=== PATIENT | male | born 1955 | race Caucasian/White ===

== ENCOUNTER 2017-01-21 14:47 | Emergency (ER) | payer MEDICARE ==
--- NOTE | 2017-01-21 15:00 | ER Document Report ---
ED Medical Screen (RME) - General Stated Complaint: FOOT PAIN Mode of Arrival: Wheelchair Information source: Patient Notes: pt presents with c/o left foot pain for over two weeks. recent treatment for gout. reports foot was cold and numb this am. Foot is normal temp now, brisk cap refill. Denies trauma. I have greeted and performed a rapid initial assessment of this patient. A comprehensive ED assessment and evaluation of the patient, analysis of test results and completion of the medical decision making process will be conducted by additional ED providers. TRAVEL OUTSIDE OF THE [place] IN LAST 30 DAYS: No - Related Data Allergies/Adverse Reactions: No Known Allergies Allergy (Verified 09/05/15 11:48) Past Medical History - Past Medical History Cardiac Medical History: Reports: Hx Hypercholesterolemia, Hx Hypertension Endocrine Medical History: Reports: Hx Diabetes Mellitus Type 2 Past Surgical History: Reports: Hx Cardiac Catheterization - stents, triple by pass
--- NOTE | 2017-01-21 17:35 | ER Document Report ---
ED Extremity Problem, Lower - General Time seen by provider: 17:15 Mode of Arrival: Wheelchair Information source: Patient TRAVEL OUTSIDE OF THE [place] IN LAST 30 DAYS: No - HPI Patient complains to provider of: Swelling Location: Foot Associated symptoms: Other - See above <CANDELARIA ALLISON - Last Filed: 01/21/17 18:18> <GRICEL JACKSON - Last Filed: 01/21/17 22:20> - General Chief Complaint: Foot Pain Stated Complaint: foot swelling Notes: Patient is a 61 year old male who presents to the emergency department complaining of left foot swelling onset 2 weeks ago. Five years ago patient had his left Achilles tendon removed and had complications with infections of the surgery site. Patient states the pain is in the back to middle of his foot with the swelling. Patient reports the swelling has worsened the past 2 weeks and that he originally went to an urgent care where he was treated for a gout flare up with no improvement. Patient reports it is painful to walk and uses a cane. (CANDELARIA ALLISON) - Related Data Allergies/Adverse Reactions: No Known Allergies Allergy (Verified 01/21/17 14:58) Past Medical History - General Information source: Patient - Social History Smoking Status: Never Smoker Chew tobacco use (# tins/day): No Frequency of alcohol use: None Drug Abuse: None Family History: Reviewed & Not Pertinent, CAD - Past Medical History Cardiac Medical History: Reports: Hx Hypercholesterolemia, Hx Hypertension Endocrine Medical History: Reports: Hx Diabetes Mellitus Type 2 Past Surgical History: Reports: Hx Cardiac Catheterization - stents, triple by pass <CANDELARIA ALLISON - Last Filed: 01/21/17 18:18> Review of Systems - Review of Systems Constitutional: No symptoms reported EENT: No symptoms reported Cardiovascular: No symptoms reported Respiratory: No symptoms reported Gastrointestinal: No symptoms reported Genitourinary: No symptoms reported Male Genitourinary: No symptoms reported Musculoskeletal: See HPI, Other - left foot swelling and pain Skin: No symptoms reported Hematologic/Lymphatic: No symptoms reported Neurological/Psychological: No symptoms reported -: Yes All other systems reviewed and negative <CANDELARIA ALLISON - Last Filed: 01/21/17 18:18> Physical Exam - Vital signs Interpretation: Normal - General General appearance: Appears well, Alert - HEENT Head: Normocephalic, Atraumatic Eyes: Normal Pupils: PERRL - Respiratory Respiratory status: No respiratory distress Chest status: Nontender Breath sounds: Normal Chest palpation: Normal - Cardiovascular Rhythm: Regular Heart sounds: Normal auscultation Murmur: No - Abdominal Inspection: Normal Distension: No distension Bowel sounds: Normal Tenderness: Nontender Organomegaly: No organomegaly - Back Back: Normal, Nontender - Extremities General upper extremity: Normal inspection, Nontender, Normal color, Normal ROM , Normal temperature General lower extremity: Normal inspection, Normal color, Normal ROM, Normal temperature, Normal weight bearing. No: Genia's sign Foot: Tender - Plantar aspect especially along the medial arch, point tender over medial heel. No erythema. No edema. No warmth. Good dorsalis pedis and posterior tibialis bilaterally - Neurological Neuro grossly intact: Yes Cognition: Normal Orientation: AAOx4 Kevin Coma Scale Eye Opening: Spontaneous Beaver Coma Scale Verbal: Oriented Beaver Coma Scale Motor: Obeys Commands Beaver Coma Scale Total: 15 Speech: Normal Motor strength normal: LUE, RUE, LLE, RLE Sensory: Normal - Psychological Associated symptoms: Normal affect, Normal mood - Skin Skin Temperature: Warm Skin Moisture: Dry Skin Color: Normal <GRICEL JACKSON - Last Filed: 01/21/17 22:20> - Vital signs Vitals: Temp Pulse Resp BP Pulse Ox 97.9 F 78 16 132/64 H 96 01/21/17 14:54 01/21/17 14:54 01/21/17 14:54 01/21/17 14:54 01/21/17 14:54 Course <CANDELARIA ALLISON - Last Filed: 01/21/17 18:18> - Diagnostic Test Radiology reviewed: Reports reviewed <GRICEL JACKSON - Last Filed: 01/21/17 22:20> - Re-evaluation Re-evalutation: 01/21/17 Patient with symptoms and exam consistent with plantar fasciitis. Patient has no evidence for infection. Patient was recently treated for gout without much improvement. His stated that his foot has never been red or warm. Patient has had multiple surgeries and would likely change the ergonomics of his foot. He is instructed to follow-up with his orthopedic doctor and consider orthopedic footwear. Patient is to continue indomethacin at home as for already prescribed. Return if any worsening or concerning symptoms. Has a cane for ambulation. Able to ambulate. Stable for discharge. (GRICEL JACKSON) - Vital Signs Vital signs: Temp Pulse Resp BP Pulse Ox 98.4 F 78 16 127/82 H 92 01/21/17 18:30 01/21/17 18:30 01/21/17 14:54 01/21/17 18:30 01/21/17 18:30 Discharge <CANDELARIA ALLISON - Last Filed: 01/21/17 18:18> <GRICEL JACKSON - Last Filed: 01/21/17 22:20> - Discharge Clinical Impression: Foot pain, left Condition: Stable Disposition: HOME, SELF-CARE Instructions: Plantar Fasciitis or Heel Spur ([facility]) Additional Instructions: Please follow-up with your orthopedic doctor or diagnostics tech this coming week. Please return if you have any further concerns. Prescriptions: Oxycodone HCl/Acetaminophen [Percocet 5-325 mg Tablet] 1 - 2 tab PO Q8HP PRN # 15 tablet PRN Reason: Forms: Elevated Blood Pressure Referrals: ALLI ARGUELLO DPM [ACTIVE STAFF] - Follow up as needed Scribe Attestation: 01/21/17 22:20 I personally performed the services described in the documentation, reviewed and edited the documentation which was dictated to the scribe in my presence, and it accurately records my words and actions. (GRICEL JACKSON) Scribe Documentation - Scribe Written by Igore:: bethany Dong, 01/21/171817 acting as scribe for :: Juanjose <CANDELARIA ALLISON - Last Filed: 01/21/17 18:18>
[2017-01-21] MEDS ORDERED: HYDROCODONE/ACETAMINOPHEN 5-325 MG 6 TAB/DSPK PO PRN (17:36)
[2017-01-21 18:33] VITALS: BP 127/82
== END 2017-01-21 18:34 | disposition home or self-care (01) ==
LOC: ER 14:47
DX: M79.672 Pain in left foot (principal); M79.89 Other specified soft tissue disorders
CPT/HCPCS: 99283; 73630; A9270

== ENCOUNTER 2017-02-05 16:56 | Inpatient (IN) | payer MEDICARE ==
[2017-02-05] MEDS ORDERED: VANCOMYCIN HCL INJ 1000 MG VIAL IV ONE ×2 (17:30→19:01)
[2017-02-05] MEDS ORDERED: AMPICILLIN SOD/SULBACTAM 3 GM VIAL IV ONE (17:30)
--- NOTE | 2017-02-05 17:31 | ER Document Report ---
ED Medical Screen (RME) - General Chief Complaint: Foot Pain Stated Complaint: LEFT FOOT PAIN TRAVEL OUTSIDE OF THE [place] IN LAST 30 DAYS: No - HPI Notes: 02/05/17 17:31 Recent joint aspiration by Dr. Collins podiatry now aspiration site red tender draining pus sent in to the ER by Dr. Collins 02/05/17 17:31 - Related Data Allergies/Adverse Reactions: No Known Allergies Allergy (Verified 02/05/17 17:10) Past Medical History - Past Medical History Cardiac Medical History: Reports: Hx Hypercholesterolemia, Hx Hypertension Endocrine Medical History: Reports: Hx Diabetes Mellitus Type 2 Renal/ Medical History: Denies: Hx Peritoneal Dialysis Past Surgical History: Reports: Hx Cardiac Catheterization - stents, triple by pass Review of Systems - Review of Systems Musculoskeletal: Other - Surgical site infection Physical Exam - Vital signs Vitals: Temp Pulse Resp BP Pulse Ox 97.5 F 72 18 124/71 94 02/05/17 17:13 02/05/17 17:13 02/05/17 17:13 02/05/17 17:13 02/05/17 17:13 - General General appearance: Appears well In distress: None Course - Vital Signs Vital signs: Temp Pulse Resp BP Pulse Ox 97.5 F 72 18 124/71 94 02/05/17 17:13 02/05/17 17:13 02/05/17 17:13 02/05/17 17:13 02/05/17 17:13
[2017-02-05 18:10] LABS: ABSOLUTE LYMPHOCYTES (AUTO) 0.7 10^3/uL (0.5-4.7); ABSOLUTE MONOCYTES (AUTO) 0.3 10^3/uL (0.1-1.4); ABSOLUTE NEUT (AUTO) 5.2 10^3/uL (1.7-8.2); BASOPHILS % (AUTO) 0.2 % (0-2); EOSINOPHILS % (AUTO) 0.5 % (0-6); HEMATOCRIT 37.5 % (37.9-51.0); HEMOGLOBIN 12.4 g/dL (13.5-17.0); HGB HCT DIFFERENCE -0.3; LYMPHOCYTES % (AUTO) 11.6 % (13-45); MEAN CORPUSCULAR HEMOGLOBIN 28.9 pg (27.0-33.4); MEAN CORPUSCULAR HGB CONC 33.1 g/dL (32.0-36.0); MEAN CORPUSCULAR VOLUME 87 fl (80-97); MONOCYTES % (AUTO) 5.3 % (3-13); RED CELL DISTRIBUTION WIDTH 14.6 % (11.5-14.0); SEGMENTED NEUTROPHILS % (AUTO) 82.4 % (42-78); WHITE BLOOD COUNT 6.3 10^3/uL (4.0-10.5)
[2017-02-05 18:33] LABS: ANION GAP 16 (5-19); BLOOD UREA NITROGEN 61 mg/dL (7-20); C-REACTIVE PROTEIN 59.4 mg/L (<10.0); CALCIUM 9.5 mg/dL (8.4-10.2); CARBON DIOXIDE 23 mmol/L (22-30); CHLORIDE 100 mmol/L (98-107); CREATININE RESULT 2.26 mg/dL (0.52-1.25); GLUCOSE 353 mg/dL (75-110); POTASSIUM 5.5 mmol/L (3.6-5.0); SODIUM 138.7 mmol/L (137-145); URIC ACID 5.4 mg/dL (3.5-8.5)
[2017-02-05 18:49] LABS: ERYTHROCYTE SEDIMENTATION RATE 86 mm/hr (0-20)
[2017-02-05] MEDS ORDERED: NORMAL SALINE 1000 ML 1,000 ML IV ONE (18:56)
[2017-02-05] MEDS ORDERED: MORPHINE SULFATE 10 MG/ML INJ IV PRN (19:03)
[2017-02-05] MEDS ORDERED: KETOROLAC TROMETHAMINE INJ/PF 30 MG/1 ML SDV IV ONE (19:03)
--- NOTE | 2017-02-05 19:03 | ER Document Report ---
ED General - General Chief Complaint: Foot Pain Stated Complaint: LEFT FOOT PAIN Notes: Patient is a 61-year-old male with past medical history of coronary artery disease, obesity, insulin-dependent diabetes, hypertension, hyperlipidemia who presents from a podiatry clinic with concerns of a left ankle cellulitis. Patient had the left ankle aspirated on the seventh of this month which apparently did return pus. That was sent for culture and has returned positive for staph infection. However, since aspiration was completed patient has had spreading redness over the dorsal surface of his left foot. Patient denies any fever or constitutional symptoms. He does note a dull, throbbing, constant pain to the affected area. Walking on the area worsens the pain. Nothing improves the pain and he has been trying Percocet. No history of similar symptoms in the past. TRAVEL OUTSIDE OF THE [place] IN LAST 30 DAYS: No - Related Data Allergies/Adverse Reactions: No Known Allergies Allergy (Verified 02/05/17 17:10) Past Medical History - General Information source: Patient - Social History Smoking Status: Never Smoker Frequency of alcohol use: None Drug Abuse: None Lives with: Spouse/Significant other Family History: Reviewed & Not Pertinent, CAD Patient has suicidal ideation: No Patient has homicidal ideation: No - Past Medical History Cardiac Medical History: Reports: Hx Hypercholesterolemia, Hx Hypertension Endocrine Medical History: Reports: Hx Diabetes Mellitus Type 2 Renal/ Medical History: Denies: Hx Peritoneal Dialysis Psychiatric Medical History: Reports: Hx Depression - PTSD, anxiety Past Surgical History: Reports: Hx Cardiac Catheterization - stents x2, triple bypass, Hx Cholecystectomy, Hx Orthopedic Surgery - left foot, right shoulder, left knee Review of Systems - Review of Systems Notes: Constitutional: Negative for fever. HENT: Negative for sore throat. Eyes: Negative for visual changes. Cardiovascular: Negative for chest pain. Respiratory: Negative for shortness of breath. Gastrointestinal: Negative for abdominal pain, vomiting or diarrhea. Genitourinary: Negative for dysuria. Musculoskeletal: Positive for left ankle pain. Skin: Negative for rash. Neurological: Negative for headaches, weakness or numbness. 10 point ROS negative except as marked above and in HPI. Physical Exam - Vital signs Vitals: Temp Pulse Resp BP Pulse Ox 97.5 F 72 18 124/71 94 02/05/17 17:13 02/05/17 17:13 02/05/17 17:13 02/05/17 17:13 02/05/17 17:13 Interpretation: Normal Notes: PHYSICAL EXAMINATION: GENERAL: Well-appearing, well-nourished and in no acute distress. HEAD: Atraumatic, normocephalic. EYES: Pupils equal round and reactive to light, extraocular movements intact, sclera anicteric, conjunctiva are normal. ENT: nares patent, oropharynx clear without exudates. Moist mucous membranes. NECK: Normal range of motion, supple without lymphadenopathy LUNGS: Breath sounds clear to auscultation bilaterally and equal. No wheezes rales or rhonchi. HEART: Regular rate and rhythm without murmurs ABDOMEN: Soft, nontender, normoactive bowel sounds. No guarding, no rebound. No masses appreciated. EXTREMITIES: Normal range of motion, no pitting or edema. No cyanosis. NEUROLOGICAL: No focal neurological deficits. Moves all extremities spontaneously and on command. PSYCH: Normal mood, normal affect. SKIN: Warm, Dry, normal turgor, there is erythema over the distal dorsum of the left foot. There is a small blood blister to the lateral malleolus of the left ankle. Course - Re-evaluation Re-evalutation: 02/05/17 19:02 Patient presents with a left foot cellulitis apparently from a left foot abscess that is status post drainage with culture results demonstrating MSSA. Primary concern at this point as the patient does appear somewhat clinically dehydrated and likewise has acute kidney injury on laboratories suggestive of prerenal azotemia with a BUN/creatinine ratio 26. Patient does not have any history of chronic kidney disease. His CRP and ESR are likewise elevated which is consistent with an acute cellulitis. X-ray without evidence of acute osteomyelitis. Given patient's acute kidney injury, hyperglycemia, and progression of his cellulitis rapidly over the last 12 hours despite administration of Bactrim, he will be admitted to the hospital - Vital Signs Vital signs: Temp Pulse Resp BP Pulse Ox 97.3 F 69 16 114/74 97 02/06/17 00:47 02/06/17 00:47 02/06/17 00:47 02/06/17 00:47 02/06/17 00:47 - Laboratory Result Diagrams: 02/05/17 17:40 02/05/17 22:00 Laboratory results interpreted by me: 02/05/17 02/05/17 02/05/17 17:40 17:40 20:51 RBC 4.30 L Hgb 12.4 L Hct 37.5 L RDW 14.6 H Seg Neutrophils % 82.4 H Lymphocytes % 11.6 L ESR 86 H Potassium 5.5 H BUN 61 H Creatinine 2.26 H Est GFR ( Amer) 36 L Est GFR (Non-Af Amer) 30 L Glucose 353 H Hemoglobin A1c % 7.5 H C-Reactive Protein 59.4 H - Diagnostic Test Radiology reviewed: Image reviewed, Reports reviewed Radiology results interpreted by me: 02/06/17 03:01 Left ankle x-ray: No acute fracture or osteomyelitis Discharge - Discharge Clinical Impression: Diabetic foot infection, Acute worsening of stage 3 chronic kidney disease Condition: Fair Disposition: ADMITTED INPATIENT Admitting Provider: [facility] Admitted: Telemetry
[2017-02-05] MEDS ORDERED: DEXTROSE 40% GEL 15 GM TUBE PO PRN ×2 (20:37)
[2017-02-05] MEDS ORDERED: INSULIN LISPRO 100 UNIT/ML 3 ML VIAL SUBCUT PRN (20:37)
[2017-02-05] MEDS ORDERED: GLUCAGON,HUMAN RECOMB 1 MG INJ IM PRN (20:37)
[2017-02-05] MEDS ORDERED: DEXTROSE 50%-WATER 25 GM/50 ML DISP.SYRIN IV PRN ×2 (20:37)
[2017-02-05] MEDS ORDERED: IPRATROPIUM/ALBUTEROL 0.5-2.5 MG/3 ML AMPUL NEB PRN (20:47)
[2017-02-05] MEDS ORDERED: ACETAMINOPHEN 325 MG TABLET PO PRN (20:47)
[2017-02-05] MEDS ORDERED: PIPERACILLIN/TAZOBACTAM 4.5 GM VIAL IV PRN (20:54)
[2017-02-05] MEDS ORDERED: PHARMACY COMMUNICATION ORDER MC SCH (21:00)
[2017-02-05] MEDS ORDERED: VANCOMYCIN HCL 0 MG in DEXTROSE 5%-WATER 250 ML IV NR (21:00)
[2017-02-05] MEDS ORDERED: PIPERACILLIN SODIUM/TAZOBACTAM 4.5 GM in NORMAL SALINE 100 ML IV SCH (21:00)
[2017-02-05 21:02] LABS: ADD ON TESTING BLD IN LAB ACKNOWLEDGE
[2017-02-05 21:15] LABS: ALANINE AMINOTRANSFERASE 28 U/L (21-72); ALBUMIN 4.1 g/dL (3.5-5.0); ALKALINE PHOSPHATASE 120 U/L (38-126); ASPARTATE AMINO TRANSFERASE 29 U/L (17-59); BILIRUBIN,DIRECT 0.4 mg/dL (0.0-0.4); BILIRUBIN,TOTAL 0.4 mg/dL (0.2-1.3); MAGNESIUM 2.1 mg/dL (1.6-2.3); TOTAL PROTEIN 6.9 g/dL (6.3-8.2)
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
[2017-02-05] MEDS: MORPHINE SULFATE 10 MG/ML INJ IV PRN (21:25)
[2017-02-05] MEDS: HEPARIN SOD (PORCINE) 5,000 UNIT/ML 1 ML SYRINGE SUBCUT SCH (22:03)
[2017-02-05] MEDS ORDERED: VANCOMYCIN HCL INJ 1000 MG VIAL ONE (22:18)
[2017-02-05 22:28] LABS: ANION GAP 15 (5-19); BLOOD UREA NITROGEN 61 mg/dL (7-20); CALCIUM 9.1 mg/dL (8.4-10.2); CARBON DIOXIDE 22 mmol/L (22-30); CHLORIDE 105 mmol/L (98-107); CREATININE RESULT 2.24 mg/dL (0.52-1.25); GLUCOSE 206 mg/dL (75-110); SODIUM 142.3 mmol/L (137-145)
[2017-02-05] MEDS: OXYCODONE HCL IR 5 MG TABLET PO PRN (23:03)
[2017-02-05] MEDS: NORMAL SALINE 1000 ML 1,000 ML IV PRN (23:05)
[2017-02-06] MEDS ORDERED: PIPERACILLIN/TAZOBACTAM 4.5 GM VIAL IV ONE ×2 (00:46→02:35)
[2017-02-06] MEDS: PIPERACILLIN SODIUM/TAZOBACTAM 4.5 GM in NORMAL SALINE 100 ML IV SCH ×5 (01:22→23:08)
[2017-02-06] MEDS ORDERED: D5W RTU IV ONE (02:34)
[2017-02-06] MEDS ORDERED: CEFEPIME IV ONE (02:34)
[2017-02-06] MEDS: MORPHINE SULFATE 10 MG/ML INJ IV PRN ×3 (06:05→21:42)
[2017-02-06 06:34] LABS: ABSOLUTE EOSINOPHILS # (AUTO) 0.1 10^3/uL (0.0-0.6); ABSOLUTE LYMPHOCYTES (AUTO) 1.4 10^3/uL (0.5-4.7); ABSOLUTE MONOCYTES (AUTO) 0.5 10^3/uL (0.1-1.4); ABSOLUTE NEUT (AUTO) 4.3 10^3/uL (1.7-8.2); BASOPHILS % (AUTO) 0.7 % (0-2); EOSINOPHILS % (AUTO) 1.4 % (0-6); HEMATOCRIT 34.1 % (37.9-51.0); HEMOGLOBIN 11.4 g/dL (13.5-17.0); HGB HCT DIFFERENCE 0.1; LYMPHOCYTES % (AUTO) 22.2 % (13-45); MEAN CORPUSCULAR HEMOGLOBIN 28.8 pg (27.0-33.4); MEAN CORPUSCULAR HGB CONC 33.4 g/dL (32.0-36.0); MEAN CORPUSCULAR VOLUME 86 fl (80-97); MONOCYTES % (AUTO) 7.8 % (3-13); RED BLOOD COUNT 3.96 10^6/uL (4.35-5.55); RED CELL DISTRIBUTION WIDTH 14.5 % (11.5-14.0); SEGMENTED NEUTROPHILS % (AUTO) 67.9 % (42-78); WHITE BLOOD COUNT 6.3 10^3/uL (4.0-10.5)
[2017-02-06 06:56] LABS: ANION GAP 14 (5-19); BLOOD UREA NITROGEN 58 mg/dL (7-20); CALCIUM 8.8 mg/dL (8.4-10.2); CARBON DIOXIDE 23 mmol/L (22-30); CHLORIDE 107 mmol/L (98-107); CREATININE RESULT 2.14 mg/dL (0.52-1.25); GLUCOSE 127 mg/dL (75-110); SODIUM 144.3 mmol/L (137-145)
[2017-02-06 06:59] LABS: POTASSIUM 4.7 mmol/L (3.6-5.0)
[2017-02-06] MEDS ORDERED: LIDOCAINE 0.5% INJ-PF (5 MG/ML) 50 ML SDV ONE (07:49)
[2017-02-06] MEDS: DOCUSATE SODIUM 100 MG CAPSULE PO SCH ×2 (09:37→17:38)
[2017-02-06] MEDS: HEPARIN SOD (PORCINE) 5,000 UNIT/ML 1 ML SYRINGE SUBCUT SCH ×2 (09:38→23:04)
[2017-02-06] MEDS: NORMAL SALINE 1000 ML 1,000 ML IV PRN (09:43)
--- NOTE | 2017-02-06 10:20 | Operative Report ---
Operative Report DATE OF SURGERY: 02/06/17 PREOPERATIVE DIAGNOSIS: Wound left ankle, lateral malleolar area POSTOPERATIVE DIAGNOSIS: Same OPERATION: Excisional debridement of skin and subcutaneous tissue wound irrigation SURGEON: DAMIEN KIRKPATRICK ANESTHESIA: Local TISSUE REMOVED OR ALTERED: Skin and subcutaneous tissue, fibrous tissue disposed of COMPLICATIONS: None ESTIMATED BLOOD LOSS: scant INTRAOPERATIVE FINDINGS: See below PROCEDURE: Left leg exposed. Surgical time out conducted. The lateral aspect of the left foot below the malleolus was prepped and draped with Betadine. A small 1 cm skin was anesthetized 1% lidocaine without epinephrine. The bulla was excised; the underlying subcutaneous tissue debrided of fibrous tissue. A hemostat used to explore any possible undrained tracts and there were none. Wound irrigated with saline, dressed with Xeroform, 4 x 4's. Impression; minimal, limited local loss infection left infra lateral malleolus region Plan: 1. Start dressing changes; orders written 2. Keep left leg elevated 3. Continue intravenous antibiotics; reexamine the left foot, suspect the metatarsal phalangeal region for change in cellulitic pattern
[2017-02-06] MEDS ORDERED: ALPRAZOLAM 0.25 MG TABLET PO PRN (11:38)
[2017-02-06] MEDS ORDERED: HYDROCODONE/ACETAMINOPHEN 5-325 MG TABLET PO PRN (11:38)
[2017-02-06] MEDS: OXYCODONE HCL IR 5 MG TABLET PO PRN ×2 (12:15→23:07)
[2017-02-06] MEDS: BUPROPION HCL 100 MG TABLET PO SCH ×2 (13:44→23:03)
[2017-02-06] MEDS: INSULIN LISPRO 100 UNIT/ML 3 ML VIAL SUBCUT SCH ×2 (13:45→17:40)
[2017-02-06] MEDS ORDERED: INSULIN LISPRO 40 UNIT SQ SCH (14:00)
[2017-02-06] MEDS ORDERED: ONDANSETRON HCL INJ/PF 4 MG/2 ML SDV IV PRN (14:31)
--- NOTE | 2017-02-06 16:20 | PDOC PROGRESS REPORT ---
Subjective Progress Note for:: 02/06/17 Subjective:: Patient is seen on rounds. He is out of bed in the recliner with left foot elevated. He is complaining of pain at the left outer malleoulus where abcess was debrided by Dr Choudhury earlier. He denies any other complaints at the present time. He states he has always had trouble with wounds in this area since achilles tendon was removed. He denies any fevers or chills. He states pain medication ordered is helping but he is finding he needs more before it's time. Rest of review of symptoms is negative. Physical Exam Vital Signs: Temp Pulse Resp BP Pulse Ox 97.7 F 73 16 103/56 L 97 02/06/17 12:35 02/06/17 14:00 02/06/17 11:03 02/06/17 12:35 02/06/17 12:35 Intake & Output 02/05/17 02/06/17 02/07/17 06:59 06:59 06:59 Intake Total 150 Balance 150 General appearance: PRESENT: no acute distress, morbidly obese, well-developed, well-nourished Head exam: PRESENT: atraumatic, normocephalic Eye exam: PRESENT: conjunctiva pink, EOMI, PERRLA. ABSENT: scleral icterus Ear exam: PRESENT: normal external ear exam Mouth exam: PRESENT: moist, tongue midline Neck exam: ABSENT: carotid bruit, JVD, lymphadenopathy, thyromegaly Respiratory exam: PRESENT: clear to auscultation taina. ABSENT: rales, rhonchi, wheezes Cardiovascular exam: PRESENT: RRR. ABSENT: diastolic murmur, rubs, systolic murmur Pulses: PRESENT: normal dorsalis pedis pul Vascular exam: PRESENT: normal capillary refill GI/Abdominal exam: PRESENT: normal bowel sounds, soft. ABSENT: distended, guarding, mass, organolmegaly, rebound, tenderness Rectal exam: PRESENT: deferred Extremities exam: PRESENT: tenderness - left outer malleolus ankle wound Musculoskeletal exam: PRESENT: ambulatory, full ROM, tenderness Neurological exam: PRESENT: alert, awake, oriented to person, oriented to place , oriented to time, oriented to situation, CN II-XII grossly intact. ABSENT: motor sensory deficit Psychiatric exam: PRESENT: appropriate affect, normal mood. ABSENT: homicidal ideation, suicidal ideation Skin exam: PRESENT: dry, intact, warm. ABSENT: cyanosis, rash Results Laboratory Results: 02/06/17 06:18 02/06/17 06:18 02/05/17 02/06/17 02/06/17 22:00 06:18 06:18 WBC 6.3 RBC 3.96 L Hgb 11.4 L Hct 34.1 L MCV 86 MCH 28.8 MCHC 33.4 RDW 14.5 H Plt Count 237 Seg Neutrophils % 67.9 Lymphocytes % 22.2 Monocytes % 7.8 Eosinophils % 1.4 Basophils % 0.7 Absolute Neutrophils 4.3 Absolute Lymphocytes 1.4 Absolute Monocytes 0.5 Absolute Eosinophils 0.1 Absolute Basophils 0.0 Sodium 142.3 144.3 Potassium 5.0 4.7 Chloride 105 107 Carbon Dioxide 22 23 Anion Gap 15 14 BUN 61 H 58 H Creatinine 2.24 H 2.14 H Est GFR ( Amer) 36 L 38 L Est GFR (Non-Af Amer) 30 L 32 L Glucose 206 H 127 H Calcium 9.1 8.8 Impressions: Extremity Ultrasound 02/05/17 00:00 IMPRESSION: Cellulitis. No abscess identified. Ankle X-Ray 02/05/17 17:29 IMPRESSION: NEGATIVE STUDY OF THE LEFT ANKLE. NO RADIOGRAPHIC EVIDENCE OF ACUTE INJURY. Assessment & Plan - Diagnosis (1) Diabetic foot infection Is this a current diagnosis for this admission?: YesPlan: We'll descalated patient's antibiotics to cover prior wound culture 2 days ago which shows plain staph aureus. It does not appear to be any bony involvement present time. Blood cultures are pending. Wound care per surgery (2) Acute worsening of stage 3 chronic kidney disease Is this a current diagnosis for this admission?: YesPlan: Gently hydrate with IV fluids We will hold nephrotoxic medications, avoid nephrotoxic dosages. (3) Diabetes mellitus type 1 Qualifiers: Diabetes mellitus complication status: with kidney complications Chronic kidney disease stage: stage 4 (severe) Is this a current diagnosis for this admission?: YesPlan: Patient is being hydrated with IV fluids secondary to worsening BUN/creatinine. Continue current medications and sliding scale coverage. (4) Hyperkalemia Is this a current diagnosis for this admission?: YesPlan: Improved with hydration (5) HLD (hyperlipidemia) Qualifiers: Hyperlipidemia type: unspecified Qualified Code(s): E78.5 - Hyperlipidemia, unspecified Is this a current diagnosis for this admission?: YesPlan: Continue statin therapy (6) HTN (hypertension) Qualifiers: Hypertension type: essential hypertension Qualified Code(s): I10 - Essential (primary) hypertension Is this a current diagnosis for this admission?: YesPlan: Presently normotensive we'll continue current medications (7) Hypothyroid Qualifiers: Hypothyroidism type: unspecified Qualified Code(s): E03.9 - Hypothyroidism, unspecified Is this a current diagnosis for this admission?: YesPlan: Continue current dose of levothyroxine (8) Anemia Qualifiers: Anemia type: unspecified type Qualified Code(s): D64.9 - Anemia, unspecified Is this a current diagnosis for this admission?: YesPlan: Presently stable we'll continue to monitor secondary to chronic kidney disease. - Time Time Spent with patient: 25-34 minutes Critical Time spent with patient: 15-24 minutes Medications reviewed and adjusted accordingly: Yes
[2017-02-06] MEDS: CLONAZEPAM 1 MG TABLET PO SCH (17:38)
[2017-02-06] MEDS ORDERED: ETODOLAC 500 MG PO SCH (18:00)
[2017-02-06] MEDS ORDERED: (PENDING PHARMACY ID) (Trazodone Hcl [Desyrel] 100 MG) PO SCH (22:00)
[2017-02-06] MEDS: METOPROLOL TARTRATE 50 MG TABLET PO SCH (23:03)
[2017-02-06] MEDS: TRAZODONE HCL 50 MG TABLET PO SCH (23:03)
[2017-02-06] MEDS: INSULIN DETEMIR 100 UNIT/ML 3 ML PEN SUBCUT SCH (23:07)
[2017-02-07] MEDS: MORPHINE SULFATE 10 MG/ML INJ IV PRN ×4 (06:39→22:26)
[2017-02-07] MEDS: BUPROPION HCL 100 MG TABLET PO SCH ×3 (06:39→22:25)
[2017-02-07] MEDS: PIPERACILLIN SODIUM/TAZOBACTAM 4.5 GM in NORMAL SALINE 100 ML IV SCH ×3 (06:39→18:22)
[2017-02-07] MEDS: CLONAZEPAM 1 MG TABLET PO SCH ×2 (06:39→18:22)
[2017-02-07] MEDS ORDERED: (PENDING PHARMACY ID) (Sertraline Hcl [Zoloft] 200 MG) PO SCH (10:00)
[2017-02-07] MEDS ORDERED: MELOXICAM 15 MG TABLET PO SCH (10:00)
[2017-02-07] MEDS ORDERED: INSULIN DEGLUDEC 50 UNIT SQ SCH (10:00)
[2017-02-07] MEDS ORDERED: (PENDING PHARMACY ID) (Fenofibric Acid (Choline) [Trilipix] 135 MG) PO SCH (10:00)
[2017-02-07] MEDS: ATORVASTATIN CALCIUM 40 MG TABLET PO SCH (11:09)
[2017-02-07] MEDS: SERTRALINE HCL 50 MG TABLET PO SCH (11:10)
[2017-02-07] MEDS: ALLOPURINOL 300 MG TABLET PO SCH (11:10)
[2017-02-07] MEDS: DOCUSATE SODIUM 100 MG CAPSULE PO SCH ×2 (11:11→18:22)
[2017-02-07] MEDS: CLOPIDOGREL BISULFATE 75 MG TABLET PO SCH (11:11)
[2017-02-07] MEDS: LANSOPRAZOLE 30 MG TAB.RAP.DR PO SCH (11:11)
[2017-02-07] MEDS: METOPROLOL TARTRATE 50 MG TABLET PO SCH ×2 (11:11→22:25)
[2017-02-07] MEDS: LEVOTHYROXINE SODIUM 0.15 MG TABLET PO SCH (11:12)
[2017-02-07] MEDS: FENOFIBRATE NANOCRYSTALLIZED 145 MG TABLET PO SCH (11:12)
[2017-02-07] MEDS: HEPARIN SOD (PORCINE) 5,000 UNIT/ML 1 ML SYRINGE SUBCUT SCH ×2 (11:13→22:24)
[2017-02-07] MEDS: INSULIN LISPRO 100 UNIT/ML 3 ML VIAL SUBCUT SCH ×3 (11:17→18:35)
[2017-02-07] MEDS ORDERED: BENZOCAINE/MENTHOL SORE THROAT LOZENGE BUCCAL PRN (11:52)
[2017-02-07] MEDS ORDERED: INSULIN LISPRO 100 UNIT/ML 3 ML VIAL SUBCUT ONE (12:00)
--- NOTE | 2017-02-07 14:13 | PROGRESS NOTE E ---
Progress Note NAME: JODI KIRKPATRICK : 1955 AGE: 61Y DATE: 02/07/2017 ROOM: 414 SUBJECTIVE: He is postop day 1, post I and D of left lateral malleolar area abscess. OBJECTIVE: The wound is checked and noted to be relatively dry without any significant drainage. However, he has an area of reddish discoloration at the base of the left 2nd toe, extending to about 1 inch proximally and medially. This is mildly tender, but no evidence of fluctuation at this time. White count is down to 6.3 and the blood sugar is 138. PLAN: I asked the nurse to continue the wet to dry dressing on the left ankle wound and to repeat the CBC in the morning. Will reevaluate the area o redness on the dorsum of the distal left foot. DICTATING PHYSICIAN: JUAN MARQUEZ M.D. [id number] PHY#: [id number] ID: [id number] JOB#: [id number] ACCT: [id number] cc: >
--- NOTE | 2017-02-07 17:10 | PDOC PROGRESS REPORT ---
Subjective Progress Note for:: 02/07/17 Subjective:: Patient is seen on rounds. He is out of bed in the recliner with left foot elevated. He is complaining of pain at the left outer malleoulus where abcess was debrided by Dr Choudhury yesterday. He denies any other complaints at the present time. He states he has always had trouble with wounds in this area since achilles tendon was removed. He denies any fevers or chills. He states pain medication ordered is helping but he is finding he needs more before it's time. Rest of review of symptoms is negative. Physical Exam Vital Signs: Temp Pulse Resp BP Pulse Ox 97.3 F 67 18 119/73 94 02/07/17 15:27 02/07/17 15:27 02/07/17 15:27 02/07/17 15:27 02/07/17 15:27 Intake & Output 02/06/17 02/07/17 02/08/17 06:59 06:59 06:59 Intake Total 150 1858 900 Output Total 0 1100 Balance 150 1858 -200 General appearance: PRESENT: no acute distress, morbidly obese, well-developed, well-nourished Head exam: PRESENT: atraumatic, normocephalic Eye exam: PRESENT: conjunctiva pink, EOMI, PERRLA. ABSENT: scleral icterus Ear exam: PRESENT: normal external ear exam Mouth exam: PRESENT: moist, tongue midline Neck exam: ABSENT: carotid bruit, JVD, lymphadenopathy, thyromegaly Respiratory exam: PRESENT: clear to auscultation taina. ABSENT: rales, rhonchi, wheezes Cardiovascular exam: PRESENT: RRR. ABSENT: diastolic murmur, rubs, systolic murmur Pulses: PRESENT: normal dorsalis pedis pul Vascular exam: PRESENT: normal capillary refill GI/Abdominal exam: PRESENT: normal bowel sounds, soft. ABSENT: distended, guarding, mass, organolmegaly, rebound, tenderness Rectal exam: PRESENT: deferred Extremities exam: PRESENT: full ROM. ABSENT: calf tenderness, clubbing, pedal edema Musculoskeletal exam: PRESENT: ambulatory, tenderness, other - left outer malleolus Neurological exam: PRESENT: alert, awake, oriented to person, oriented to place , oriented to time, oriented to situation, CN II-XII grossly intact. ABSENT: motor sensory deficit Psychiatric exam: PRESENT: appropriate affect, normal mood. ABSENT: homicidal ideation, suicidal ideation Skin exam: PRESENT: dry - Wound covered at the present time, warm Results Laboratory Results: 02/06/17 06:18 02/06/17 06:18 Impressions: Extremity Ultrasound 02/05/17 00:00 IMPRESSION: Cellulitis. No abscess identified. Ankle X-Ray 02/05/17 17:29 IMPRESSION: NEGATIVE STUDY OF THE LEFT ANKLE. NO RADIOGRAPHIC EVIDENCE OF ACUTE INJURY. Assessment & Plan - Diagnosis (1) Diabetic foot infection Is this a current diagnosis for this admission?: YesPlan: We'll descalated patient's antibiotics to cover prior wound culture 2 days ago which shows plain staph aureus. It does not appear to be any bony involvement present time. Blood cultures are pending. Wound care per surgery (2) Acute worsening of stage 3 chronic kidney disease Is this a current diagnosis for this admission?: YesPlan: Gently hydrate with IV fluids We will hold nephrotoxic medications, avoid nephrotoxic dosages. (3) Diabetes mellitus type 1 Qualifiers: Diabetes mellitus complication status: with kidney complications Chronic kidney disease stage: stage 4 (severe) Is this a current diagnosis for this admission?: YesPlan: Patient is being hydrated with IV fluids secondary to worsening BUN/creatinine. Continue current medications and sliding scale coverage. (4) Hyperkalemia Is this a current diagnosis for this admission?: YesPlan: Improved with hydration (5) HLD (hyperlipidemia) Qualifiers: Hyperlipidemia type: unspecified Qualified Code(s): E78.5 - Hyperlipidemia, unspecified Is this a current diagnosis for this admission?: YesPlan: Continue statin therapy (6) HTN (hypertension) Qualifiers: Hypertension type: essential hypertension Qualified Code(s): I10 - Essential (primary) hypertension Is this a current diagnosis for this admission?: YesPlan: Presently normotensive we'll continue current medications (7) Hypothyroid Qualifiers: Hypothyroidism type: unspecified Qualified Code(s): E03.9 - Hypothyroidism, unspecified Is this a current diagnosis for this admission?: YesPlan: Continue current dose of levothyroxine (8) Anemia Qualifiers: Anemia type: unspecified type Qualified Code(s): D64.9 - Anemia, unspecified Is this a current diagnosis for this admission?: YesPlan: Presently stable we'll continue to monitor secondary to chronic kidney disease. - Time Time Spent with patient: 25-34 minutes Critical Time spent with patient: 15-24 minutes Medications reviewed and adjusted accordingly: Yes Anticipated discharge: Home Within: within 48 hours
[2017-02-07] MEDS: NORMAL SALINE 1000 ML 1,000 ML IV PRN (18:21)
[2017-02-07] MEDS: NYSTATIN/DEXAMETH/DIPHEN SUSP 120 ML PO SCH ×2 (18:23→22:24)
[2017-02-07] MEDS: INSULIN DETEMIR 100 UNIT/ML 3 ML PEN SUBCUT SCH (22:25)
[2017-02-07] MEDS: TRAZODONE HCL 50 MG TABLET PO SCH (22:25)
[2017-02-08] MEDS: PIPERACILLIN SODIUM/TAZOBACTAM 4.5 GM in NORMAL SALINE 100 ML IV SCH ×4 (00:16→18:15)
[2017-02-08] MEDS: MORPHINE SULFATE 10 MG/ML INJ IV PRN ×3 (04:22→14:53)
[2017-02-08 05:27] LABS: ANION GAP 13 (5-19); BLOOD UREA NITROGEN 36 mg/dL (7-20); CALCIUM 9.5 mg/dL (8.4-10.2); CARBON DIOXIDE 25 mmol/L (22-30); CHLORIDE 105 mmol/L (98-107); CREATININE RESULT 1.88 mg/dL (0.52-1.25); GLUCOSE 136 mg/dL (75-110); SODIUM 143.4 mmol/L (137-145)
[2017-02-08] MEDS: BUPROPION HCL 100 MG TABLET PO SCH ×3 (06:28→23:06)
[2017-02-08] MEDS: CLONAZEPAM 1 MG TABLET PO SCH ×2 (06:28→18:01)
[2017-02-08] MEDS: OXYCODONE HCL IR 5 MG TABLET PO PRN ×2 (06:29→18:01)
[2017-02-08] MEDS: ALLOPURINOL 300 MG TABLET PO SCH (09:26)
[2017-02-08] MEDS: FENOFIBRATE NANOCRYSTALLIZED 145 MG TABLET PO SCH (09:27)
[2017-02-08] MEDS: LEVOTHYROXINE SODIUM 0.15 MG TABLET PO SCH (09:27)
[2017-02-08] MEDS: DOCUSATE SODIUM 100 MG CAPSULE PO SCH ×2 (09:27→18:01)
[2017-02-08] MEDS: LANSOPRAZOLE 30 MG TAB.RAP.DR PO SCH (09:28)
[2017-02-08] MEDS: METOPROLOL TARTRATE 50 MG TABLET PO SCH ×2 (09:28→23:05)
[2017-02-08] MEDS: ATORVASTATIN CALCIUM 40 MG TABLET PO SCH (09:29)
[2017-02-08] MEDS: SERTRALINE HCL 50 MG TABLET PO SCH (09:29)
[2017-02-08] MEDS: CLOPIDOGREL BISULFATE 75 MG TABLET PO SCH (09:30)
[2017-02-08] MEDS: LUBIPROSTONE 24 MCG CAPSULE PO SCH (09:31)
[2017-02-08] MEDS: NYSTATIN/DEXAMETH/DIPHEN SUSP 120 ML PO SCH ×4 (09:34→23:06)
[2017-02-08] MEDS: INSULIN LISPRO 100 UNIT/ML 3 ML VIAL SUBCUT SCH ×3 (09:37→18:01)
[2017-02-08] MEDS: HEPARIN SOD (PORCINE) 5,000 UNIT/ML 1 ML SYRINGE SUBCUT SCH ×2 (09:38→23:06)
[2017-02-08] MEDS: NORMAL SALINE 1000 ML 1,000 ML IV PRN (15:04)
--- NOTE | 2017-02-08 16:04 | PDOC PROGRESS REPORT ---
Subjective Progress Note for:: 02/08/17 Subjective:: The patient was seen earlier today on rounds. The patient complains of persistent pain in the foot. The patient denies any nausea, vomiting, diarrhea , shortness of breath, dizziness, chest pain, heart palpitations, fevers, or chills. The patient has remained afebrile. Blood pressures have been in a good range. When prompted the patient voices no other concerns at this time. Review of systems: The rest of the review of systems is negative. Physical Exam Vital Signs: Temp Pulse Resp BP Pulse Ox 97.8 F 72 16 103/58 L 97 02/08/17 12:00 02/08/17 12:00 02/08/17 12:00 02/08/17 12:00 02/08/17 12:00 Intake & Output 02/06/17 02/07/17 02/08/17 23:59 23:59 23:59 Intake Total 1858 1175 400 Output Total 0 2175 500 Balance 1858 -1000 -100 General appearance: PRESENT: no acute distress, morbidly obese, well-developed, well-nourished Head exam: PRESENT: atraumatic, normocephalic Eye exam: PRESENT: conjunctiva pink, EOMI, PERRLA. ABSENT: scleral icterus Ear exam: PRESENT: normal external ear exam Mouth exam: PRESENT: moist, tongue midline Neck exam: ABSENT: carotid bruit, JVD, lymphadenopathy, thyromegaly Respiratory exam: PRESENT: clear to auscultation taina. ABSENT: rales, rhonchi, wheezes Cardiovascular exam: PRESENT: RRR. ABSENT: diastolic murmur, rubs, systolic murmur Pulses: PRESENT: normal dorsalis pedis pul Vascular exam: PRESENT: normal capillary refill GI/Abdominal exam: PRESENT: normal bowel sounds, soft. ABSENT: distended, guarding, mass, organolmegaly, rebound, tenderness Rectal exam: PRESENT: deferred Extremities exam: PRESENT: full ROM. ABSENT: calf tenderness, clubbing, pedal edema Musculoskeletal exam: PRESENT: ambulatory, tenderness, other - left outer malleolus Neurological exam: PRESENT: alert, awake, oriented to person, oriented to place , oriented to time, oriented to situation, CN II-XII grossly intact. ABSENT: motor sensory deficit Psychiatric exam: PRESENT: appropriate affect, normal mood. ABSENT: homicidal ideation, suicidal ideation Skin exam: PRESENT: dry - Wound covered at the present time, warm Results Laboratory Results: 02/06/17 06:18 02/08/17 04:02 02/08/17 04:02 Sodium 143.4 Potassium 5.0 Chloride 105 Carbon Dioxide 25 Anion Gap 13 BUN 36 H Creatinine 1.88 H Est GFR ( Amer) 44 L Est GFR (Non-Af Amer) 37 L Glucose 136 H Calcium 9.5 Magnesium 2.0 Impressions: Extremity Ultrasound 02/05/17 00:00 IMPRESSION: Cellulitis. No abscess identified. Ankle X-Ray 02/05/17 17:29 IMPRESSION: NEGATIVE STUDY OF THE LEFT ANKLE. NO RADIOGRAPHIC EVIDENCE OF ACUTE INJURY. Assessment & Plan - Diagnosis (1) Diabetic foot infection Is this a current diagnosis for this admission?: YesPlan: Continue current antibiotic coverage. (2) Acute worsening of stage 3 chronic kidney disease Is this a current diagnosis for this admission?: YesPlan: Will continue gently hydrate. Does appear creatinine is far from baseline. (3) Hyperkalemia Is this a current diagnosis for this admission?: YesPlan: Improved with hydration (4) CKD (chronic kidney disease), stage III Is this a current diagnosis for this admission?: Yes (5) HLD (hyperlipidemia) Qualifiers: Hyperlipidemia type: unspecified Qualified Code(s): E78.5 - Hyperlipidemia, unspecified Is this a current diagnosis for this admission?: Yes (6) HTN (hypertension) Qualifiers: Hypertension type: essential hypertension Qualified Code(s): I10 - Essential (primary) hypertension Is this a current diagnosis for this admission?: Yes (7) Hypothyroid Qualifiers: Hypothyroidism type: unspecified Qualified Code(s): E03.9 - Hypothyroidism, unspecified Is this a current diagnosis for this admission?: Yes (8) Stented coronary artery Is this a current diagnosis for this admission?: Yes (9) History of traumatic brain injury Is this a current diagnosis for this admission?: Yes (10) Anemia in chronic kidney disease Is this a current diagnosis for this admission?: Yes - Time Time Spent with patient: 25-34 minutes Medications reviewed and adjusted accordingly: Yes Anticipated discharge: Home Within: within 24 hours, within 48 hours
[2017-02-08 19:35] LABS: APPEARANCE,URINE CLEAR; BILIRUBIN,URINE NEGATIVE (NEGATIVE); GLUCOSE, URINE NEGATIVE (NEGATIVE); KETONES,URINE NEGATIVE (NEGATIVE); LEUKOCYTE ESTERASE,URINE NEGATIVE (NEGATIVE); NITRITE,URINE NEGATIVE (NEGATIVE); PROTEIN,URINE NEGATIVE (NEGATIVE); URINE SPECIFIC GRAVITY 1.006; UROBILINOGEN,URINE NEGATIVE mg/dL (<2.0)
--- NOTE | 2017-02-08 21:43 | PROGRESS NOTE E ---
Progress Note NAME: JODI KIRKPATRICK : 1955 AGE: 61Y DATE: 02/08/2017 ROOM: 414 SUBJECTIVE: The patient is postop day #2, post I and D of left lateral malleolar area abscess. OBJECTIVE: On examination, the left lateral malleolar area incision and drainage site is much less inflamed. The area on the reddish discoloration at the base of the left second toe has decreased in size and with minimal tenderness. I believe it is getting better. PLAN: To continue with wet-to-dry dressing on the left ankle and we will re-evaluate the foot again in the a.m. DICTATING PHYSICIAN: JUAN MARQUEZ M.D. [id number] PHY#: [id number] ID: [id number] JOB#: [id number] ACCT: [id number] cc: >
[2017-02-08] MEDS ORDERED: DIPHENHYDRAMINE HCL 25 MG CAPSULE PO SCH (22:00)
[2017-02-08] MEDS: TRAZODONE HCL 50 MG TABLET PO SCH (23:06)
[2017-02-08] MEDS: INSULIN DETEMIR 100 UNIT/ML 3 ML PEN SUBCUT SCH (23:08)
[2017-02-09] MEDS: MORPHINE SULFATE 10 MG/ML INJ IV PRN ×3 (03:05→06:06)
[2017-02-09] MEDS: PIPERACILLIN SODIUM/TAZOBACTAM 4.5 GM in NORMAL SALINE 100 ML IV SCH ×4 (06:06→12:33)
[2017-02-09] MEDS: BUPROPION HCL 100 MG TABLET PO SCH (06:06)
[2017-02-09] MEDS: CLONAZEPAM 1 MG TABLET PO SCH (06:06)
[2017-02-09] MEDS: LANSOPRAZOLE 30 MG TAB.RAP.DR PO SCH (09:28)
[2017-02-09] MEDS: DOCUSATE SODIUM 100 MG CAPSULE PO SCH (09:28)
[2017-02-09] MEDS: CLOPIDOGREL BISULFATE 75 MG TABLET PO SCH (09:28)
[2017-02-09] MEDS: ALLOPURINOL 300 MG TABLET PO SCH (09:28)
[2017-02-09] MEDS: SERTRALINE HCL 50 MG TABLET PO SCH (09:28)
[2017-02-09] MEDS: FENOFIBRATE NANOCRYSTALLIZED 145 MG TABLET PO SCH (09:29)
[2017-02-09] MEDS: METOPROLOL TARTRATE 50 MG TABLET PO SCH (09:29)
[2017-02-09] MEDS: LEVOTHYROXINE SODIUM 0.15 MG TABLET PO SCH (09:29)
[2017-02-09] MEDS: ATORVASTATIN CALCIUM 40 MG TABLET PO SCH (09:29)
[2017-02-09] MEDS: HEPARIN SOD (PORCINE) 5,000 UNIT/ML 1 ML SYRINGE SUBCUT SCH (09:30)
[2017-02-09] MEDS: INSULIN LISPRO 100 UNIT/ML 3 ML VIAL SUBCUT SCH (09:34)
[2017-02-09] MEDS: LUBIPROSTONE 24 MCG CAPSULE PO SCH (09:36)
[2017-02-09] MEDS: NYSTATIN/DEXAMETH/DIPHEN SUSP 120 ML PO SCH (09:36)
--- NOTE | 2017-02-09 11:54 | PROGRESS NOTE E ---
Progress Note NAME: JODI KIKRPATRICK : 1955 AGE: 61Y DATE: 02/09/2017 ROOM: 414 SUBJECTIVE: His left foot cellulitis towards the second toe appears to have improved. OBJECTIVE: There is less erythema and swelling. PLAN: I will wait for the nurse to remove the dressing on the left ankle to check the wound. Yesterday, it looked a lot better. DICTATING PHYSICIAN: JUAN MARQUEZ M.D. [id number] [id number] PHY#: [id number] ID: [id number] JOB#: [id number] ACCT: [id number] cc: >
[2017-02-09] MEDS ORDERED: OXYCODONE HCL SR 10 MG TABLET PO ONE (14:07)
[2017-02-09] MEDS ORDERED: OXYCODONE HCL IR 5 MG TABLET PO PRN (14:07)
--- NOTE | 2017-02-09 14:54 | OPERATIVE REPORT E ---
Operative Report NAME: JODI KIRKPATRICK : 1955 AGE: 61Y DATE OF SURGERY: 02/06/2017 ROOM: 414 ADDENDUM: The wound size is approximately 2 cm x 1 cm x 0.5 cm deep. DICTATING PHYSICIAN: DAMIEN KIRKPATRICK M.D. [id number] PHY#: [id number] ID: [id number] JOB#: [id number] ACCT: [id number] cc:DAMIEN KIRKPATRICK M.D. >
--- NOTE | 2017-02-09 15:40 | PDOC PROGRESS REPORT ---
Subjective Progress Note for:: 02/09/17 Subjective:: The patient was seen earlier today on rounds. The patient complains of persistent pain in the foot. I explained to the patient that most likely be discharged tomorrow and needs to be weaned from IV narcotics. According to surgery's note the foot will be reevaluated once again in the a.m. The patient denies any nausea, vomiting, diarrhea, shortness of breath, dizziness, chest pain, heart palpitations, fevers, or chills. The patient has remained afebrile. Blood pressures have been in a good range. When prompted the patient voices no other concerns at this time. Review of systems: The rest of the review of systems is negative. requested a prescription for a hospital bed. Unfortunately the patient does not meet criteria in that the patient is ambulatory, does not require frequent position changes, does not require angled positioning. Physical Exam Vital Signs: Temp Pulse Resp BP Pulse Ox 97.3 F 79 16 132/72 H 93 02/09/17 11:12 02/09/17 14:00 02/09/17 11:57 02/09/17 11:12 02/09/17 11:57 Intake & Output 02/07/17 02/08/17 02/09/17 23:59 23:59 23:59 Intake Total 1175 400 Output Total 2175 500 Balance -1000 -100 Weight 125.1 kg General appearance: PRESENT: no acute distress, morbidly obese, well-developed, well-nourished Head exam: PRESENT: atraumatic, normocephalic Eye exam: PRESENT: conjunctiva pink, EOMI, PERRLA. ABSENT: scleral icterus Ear exam: PRESENT: normal external ear exam Mouth exam: PRESENT: moist, tongue midline Neck exam: ABSENT: carotid bruit, JVD, lymphadenopathy, thyromegaly Respiratory exam: PRESENT: clear to auscultation taina. ABSENT: rales, rhonchi, wheezes Cardiovascular exam: PRESENT: RRR. ABSENT: diastolic murmur, rubs, systolic murmur Pulses: PRESENT: normal dorsalis pedis pul Vascular exam: PRESENT: normal capillary refill GI/Abdominal exam: PRESENT: normal bowel sounds, soft. ABSENT: distended, guarding, mass, organolmegaly, rebound, tenderness Rectal exam: PRESENT: deferred Extremities exam: PRESENT: full ROM. ABSENT: calf tenderness, clubbing, pedal edema Musculoskeletal exam: PRESENT: ambulatory, tenderness, other - left outer malleolus Neurological exam: PRESENT: alert, awake, oriented to person, oriented to place , oriented to time, oriented to situation, CN II-XII grossly intact. ABSENT: motor sensory deficit Psychiatric exam: PRESENT: appropriate affect, normal mood. ABSENT: homicidal ideation, suicidal ideation Skin exam: PRESENT: dry - Wound covered at the present time, warm Results Laboratory Results: 02/06/17 06:18 02/08/17 04:02 02/08/17 18:35 Urine Color STRAW Urine Appearance CLEAR Urine pH 6.0 Ur Specific [place] 1.006 Urine Protein NEGATIVE Urine Glucose (UA) NEGATIVE Urine Ketones NEGATIVE Urine Blood SMALL H Urine Nitrite NEGATIVE Ur Leukocyte Esterase NEGATIVE Urine WBC (Auto) 0 Urine RBC (Auto) 4 Impressions: Extremity Ultrasound 02/05/17 00:00 IMPRESSION: Cellulitis. No abscess identified. Ankle X-Ray 02/05/17 17:29 IMPRESSION: NEGATIVE STUDY OF THE LEFT ANKLE. NO RADIOGRAPHIC EVIDENCE OF ACUTE INJURY. Assessment & Plan - Diagnosis (1) Diabetic foot infection Is this a current diagnosis for this admission?: YesPlan: Continue current antibiotic coverage. Further management as per surgery. (2) Acute worsening of stage 3 chronic kidney disease Is this a current diagnosis for this admission?: YesPlan: It does appear that the patient's creatinine is not far from baseline. Will repeat chemistries in the a.m. and follow. (3) Hyperkalemia Is this a current diagnosis for this admission?: YesPlan: Improved with hydration (4) CKD (chronic kidney disease), stage III Is this a current diagnosis for this admission?: Yes (5) HLD (hyperlipidemia) Qualifiers: Hyperlipidemia type: unspecified Qualified Code(s): E78.5 - Hyperlipidemia, unspecified Is this a current diagnosis for this admission?: YesPlan: Will continue home medications. (6) HTN (hypertension) Qualifiers: Hypertension type: essential hypertension Qualified Code(s): I10 - Essential (primary) hypertension Is this a current diagnosis for this admission?: YesPlan: Will continue home medications. (7) Hypothyroid Qualifiers: Hypothyroidism type: unspecified Qualified Code(s): E03.9 - Hypothyroidism, unspecified Is this a current diagnosis for this admission?: YesPlan: Will continue home medications. (8) Stented coronary artery Is this a current diagnosis for this admission?: Yes (9) History of traumatic brain injury Is this a current diagnosis for this admission?: Yes (10) Anemia in chronic kidney disease Is this a current diagnosis for this admission?: Yes (11) Obstructive sleep apnea Is this a current diagnosis for this admission?: YesPlan: Continue C Pap (12) Opiate dependence, continuous Is this a current diagnosis for this admission?: YesPlan: ESE [facility] Search Criteria: Last Name 'Ese' and First Name 'Alonso' and = and Request Period = 08/13/16 to 02/09/17' - 8 out of 8 Recipients Selected. Fill Date Product, Str, Form Qty Days Pt ID Prescriber Written RX# N/R* Pharm MED+ ------ ---- --------- --- ------- ----- --------- ------ 02/03/2017 OXYCODONE-ACETAMINOPHEN 5-325 30.00 7 [id number] 02/03/2017 [id number] N [id number] 32.14 01/24/2017 OXYCODONE-ACETAMINOPHEN 5-325 15.00 3 [id number] 01/21/2017 [id number] N [id number] 37.5 01/19/2017 ALPRAZOLAM 0.25 MG TABLET 60.00 15 [id number] 12/22/2016 [id number] R [id number] 00.0 01/19/2017 CLONAZEPAM 1 MG TABLET 60.00 30 [id number] 10/27/2016 [id number] R [id number] 00.0 12/24/2016 ALPRAZOLAM 0.25 MG TABLET 60.00 15 [id number] 12/22/2016 [id number] N [id number] 00.0 12/22/2016 CLONAZEPAM 1 MG TABLET 60.00 30 [id number] 10/27/2016 [id number] R [id number] 00.0 12/22/2016 HYDROCODON-ACETAMINOPHEN 5-325 30.00 10 [id number] 2016 [id number] N [id number] 15.0 11/26/2016 ALPRAZOLAM 0.25 MG TABLET 60.00 15 [id number] 11/25/2016 [id number] N [id number] 00.0 11/24/2016 CLONAZEPAM 1 MG TABLET 60.00 30 [id number] 10/27/2016 [id number] R [id number] 00.0 10/27/2016 CLONAZEPAM 1 MG TABLET 60.00 30 [id number] 10/27/2016 [id number] N [id number] 00.0 10/17/2016 ALPRAZOLAM 0.25 MG TABLET 60.00 15 [id number] 10/03/2016 [id number] N [id number] 00.0 09/05/2016 ALPRAZOLAM 0.25 MG TABLET 60.00 15 [id number] 08/31/2016 [id number] N [id number] 00.0 09/05/2016 LORAZEPAM 1 MG TABLET 90.00 30 [id number] 08/31/2016 [id number] N [id number] 00.0 *N/R N=New R=Refill +MED Daily Prescribers for prescriptions listed [id number] CHUCKY OMER MD; [facility], [address] [facility] [address] [id number] MIRANDA DELA CRUZ MD; [facility], [address] [place] [id number] RADHA SOUTH (PA-C); [facility], [address], [place] [id number] GRICEL JACKSON (DO); [facility], [address] [place], [place] [address] [id number] ALLI ARGUELLO DPKaelyn; [address] [place] [address] Pharmacies that dispensed prescriptions listed (13) Benzodiazepine dependence, continuous Is this a current diagnosis for this admission?: Yes - Time Time Spent with patient: 25-34 minutes Medications reviewed and adjusted accordingly: Yes Anticipated discharge: Home Within: within 24 hours
[2017-02-09 16:29] VITALS: BP 121/68
[2017-02-09] MEDS ORDERED: LIDOCAINE 1% INJ-PF (10 MG/ML) 30 ML SDV INJ PRN (17:35)
[2017-02-09] MEDS ORDERED: OXYCODONE HCL SR 10 MG TABLET PO SCH (22:00)
--- NOTE | 2017-02-10 12:33 | PDOC DISCHARGE SUMMARY ---
General - Admit/Disc Date/PCP Admission Date/Primary Care Provider: 02/05/17 21:01 Discharge Date: 02/09/17 - Left AMA - Discharge Diagnosis (1) Diabetic foot infection Is this a current diagnosis for this admission?: Yes (2) Acute worsening of stage 3 chronic kidney disease Is this a current diagnosis for this admission?: Yes (3) Hyperkalemia Is this a current diagnosis for this admission?: Yes (4) CKD (chronic kidney disease), stage III Is this a current diagnosis for this admission?: Yes (5) HLD (hyperlipidemia) Is this a current diagnosis for this admission?: Yes (6) HTN (hypertension) Is this a current diagnosis for this admission?: Yes (7) Hypothyroid Is this a current diagnosis for this admission?: Yes (8) Stented coronary artery Is this a current diagnosis for this admission?: Yes (9) History of traumatic brain injury Is this a current diagnosis for this admission?: Yes (10) Anemia in chronic kidney disease Is this a current diagnosis for this admission?: Yes (11) Obstructive sleep apnea Is this a current diagnosis for this admission?: Yes (12) Opiate dependence, continuous Is this a current diagnosis for this admission?: Yes (13) Benzodiazepine dependence, continuous Is this a current diagnosis for this admission?: Yes - Additional Information Home Medications: Allopurinol [Zyloprim 300 mg Tablet] 300 mg PO DAILY 02/06/17 Alprazolam [Xanax 0.25 mg Tablet] 0.25 mg PO Q6HP PRN 02/06/17 Atorvastatin Calcium [Lipitor 40 mg Tablet] 40 mg PO DAILY 02/06/17 Bupropion HCl [Wellbutrin Xl 300mg 24hr Tablet] 300 mg PO DAILY 02/06/17 Clonazepam [Klonopin 1 mg Tablet] 1 mg PO BID 02/06/17 Clopidogrel Bisulfate [Plavix 75 mg Tablet] 75 mg PO DAILY 02/06/17 Etodolac [Lodine] 500 mg PO BID 02/06/17 Fenofibric Acid (Choline) [Trilipix] 135 mg PO DAILY 02/06/17 Hydrocodone/Acetaminophen [[place] 5-325 mg Tablet] 1 tab PO TIDP PRN 02/06/17 Insulin Degludec [Tresiba Flextouch U-200] 50 units SQ DAILY 02/06/17 Insulin Detemir [Levemir Flextouch] 20 units SQ QHS 02/06/17 Insulin Lispro [Humalog Kwikpen U-100] 40 units SQ TID 02/06/17 Levothyroxine Sodium [Synthroid] 150 mg PO DAILY 02/06/17 Lorazepam [Ativan 1 mg Tablet] 1 mg PO TID 02/06/17 Meclizine HCl [Antivert 25 mg Tablet] 25 mg PO DAILYP PRN 02/06/17 Meloxicam [Mobic 15 mg Tablet] 15 mg PO DAILY 02/06/17 Metoprolol Tartrate [Lopressor 50 mg Tablet] 50 mg PO Q12 02/06/17 Nitroglycerin [Nitrostat 0.4 mg (1/150 Gr) Tabs 25/Bottle] 0.4 mg SL Q5MP PRN Pantoprazole Sodium [Protonix] 40 mg PO DAILY 02/06/17 Sertraline HCl [Zoloft] 200 mg PO DAILY 02/06/17 Trazodone HCl [Desyrel] 100 mg PO QHS 02/06/17 History of Present Illness Patient complains of: Left foot infection History of Present Illness: JODI KIRKPATRICK is a 61 year old morbidly obese insulin-dependent diabetic male, with multiple chronic comorbidities, who presents to the emergency room for evaluation of above complaint. 2 weeks ago, he noted some redness swelling and tenderness, gradually progressive, slightly posterior and inferior to his left lateral malleolus. States he came to an emergency room and was diagnosed with plantar fasciitis. Soft Dr. Collins, local plastic maker 2 days ago and was diagnosed with infection with abscess, underwent aspiration by Dr. Collins. Was placed on Bactrim. Despite this, pain has gradually progressed, combination throbbing and sharp in nature, worse with any ambulation and contact with the area of concern. Positive nausea but no vomiting. Subjective fever prior to starting on antibiotics; none since then. Possibly mild dysuria, but no diarrhea. Questionable history of MRSA infection in the past. Has had multiple operations on the left lower leg and ankle, including what patient describes as "removal" of his Achilles tendon. Has occasional infection in the area. Hospital Course Hospital Course: The patient was admitted to continuous telemetry unit. Blood cultures were obtained. Patient was started on broad-spectrum IV antibiotic coverage. Blood cultures revealed no growth. Wound culture revealed staph aureus which is resistant to clindamycin. The patient had minimal improvement of symptoms. No further fever, white count has improved, and clinical assessment has improved. The patient's pain was addressed multiple times. The patient was seen and evaluated by surgery. MRI did not reveal an underlying osteomyelitis. Family requested transfer to [facility] however given the rules of [facility] he did not fit the criteria for transfer to higher level of care. Family and patient elected to sign out AGAINST MEDICAL ADVICE. Physical Exam Vital Signs: Temp Pulse Resp BP Pulse Ox 98.1 F 75 16 121/68 97 02/09/17 15:17 02/09/17 17:07 02/09/17 17:07 02/09/17 15:17 02/09/17 15:17 Intake & Output 02/08/17 02/09/17 02/10/17 23:59 23:59 23:59 Intake Total 400 Output Total 500 Balance -100 Weight 125.1 kg Results Laboratory Results: 02/06/17 06:18 02/08/17 04:02 Impressions: Extremity Ultrasound 02/05/17 00:00 IMPRESSION: Cellulitis. No abscess identified. Ankle X-Ray 02/05/17 17:29 IMPRESSION: NEGATIVE STUDY OF THE LEFT ANKLE. NO RADIOGRAPHIC EVIDENCE OF ACUTE INJURY. Lower Extremity MRI 02/09/17 00:00 IMPRESSION: Extensive soft tissue and bony abscesses of the calcaneus and adjacent lateral soft tissues. No involvement of the peroneal tendons, but there is tendinopathy of the peroneus brevis. Qualifiers PATEINT BEING DISCHARGED WITH ANY OF THE FOLLOWING DIAGNOSIS?: No Plan Time Spent: Less than 30 Minutes
--- NOTE | 2017-02-22 08:12 | OPERATIVE REPORT E ---
Operative Report NAME: JODI KIRKPATRICK : 1955 AGE: 61Y DATE OF SURGERY: ROOM: 414 ADDENDUM: SURGEON: DAMIEN KIRKPATRICK M.D. PROCEDURE: The instrument used was a scalpel for the excision of the 2.1-cm portion of skin and subcutaneous tissue surgically debrided on the patient. DICTATING PHYSICIAN: DAMIEN KIRKPATRICK M.D. [id number] PHY#: [id number] ID: [id number] JOB#: [id number] ACCT: [id number] cc:DAMIEN KIRKPATRICK M.D. >
== END 2017-02-09 18:30 | disposition left against medical advice (07) | DRG 624 ==
LOC: ER 16:56 → EH 21:01 → 4N 02-06 00:36
PROVIDERS: ADMIT Family Medicine; ATTEND Family Medicine
PROC: 0JBR0ZZ Excision of Left Foot Subcutaneous Tissue and Fascia, Open Approach (ICD-10-PCS; principal; 2017-02-06)
DX: E10.628 Type 1 diabetes mellitus with other skin complications (principal); L08.9 Local infection of the skin and subcutaneous tissue, unspecified; B95.61 Methicillin susceptible Staphylococcus aureus infection as the cause of diseases classified elsewhere; I13.10 Hypertensive heart and chronic kidney disease without heart failure, with stage 1 through stage 4 chronic kidney disease, or unspecified chronic kidney disease; E10.22 Type 1 diabetes mellitus with diabetic chronic kidney disease; N18.3 Chronic kidney disease, stage 3 (moderate); D63.1 Anemia in chronic kidney disease; Z79.4 Long term (current) use of insulin; E87.5 Hyperkalemia; I25.10 Atherosclerotic heart disease of native coronary artery without angina pectoris; J44.9 Chronic obstructive pulmonary disease, unspecified; R56.9 Unspecified convulsions; D64.9 Anemia, unspecified; E78.5 Hyperlipidemia, unspecified; G47.33 Obstructive sleep apnea (adult) (pediatric); E03.9 Hypothyroidism, unspecified; K21.9 Gastro-esophageal reflux disease without esophagitis; M19.90 Unspecified osteoarthritis, unspecified site; F32.9 Major depressive disorder, single episode, unspecified; F41.1 Generalized anxiety disorder; F43.10 Post-traumatic stress disorder, unspecified; Z79.899 Other long term (current) drug therapy; Z87.820 Personal history of traumatic brain injury; Z86.14 Personal history of Methicillin resistant Staphylococcus aureus infection; Z95.5 Presence of coronary angioplasty implant and graft; Z90.49 Acquired absence of other specified parts of digestive tract
CPT/HCPCS: 36415; 76881; 80048; 80076; 81001; 82962; 83036; 83605; 83735; 84443; 84550; 85025; 85652; 86140; 87040; 87070; 87075; 87077; 87186; 87205; 89060; 94660; 96374; 99285; J0295; J1644; J1815; J1885; J2270; J2543; J3370; J3490; J7030